=== PATIENT | male | born 1960 | race Caucasian/White ===

== ENCOUNTER 2016-12-05 11:08 | Emergency (ER) | payer OTHER ==
[2016-12-05] MEDS ORDERED: Sodium Chloride 0.9% 10 ML Syringe FLUSH PRN (11:40)
[2016-12-05] MEDS ORDERED: Ondansetron 4 MG/2 ML SDV IVPUSH ONE (11:41)
[2016-12-05] MEDS ORDERED: Ketorolac 30 MG/ML SDV IVPUSH ONE (11:41)
[2016-12-05] MEDS ORDERED: HYDROmorphone 1 MG/ML Syringe IVPUSH ONE (11:41)
[2016-12-05] MEDS: Sodium Chloride 0.9% 1,000 ML IV ONE ×2 (12:05→13:34)
[2016-12-05 12:15] LABS: CHLORIDE,CL 101 mmol/L (98-107); SODIUM,NA 139 mmol/L (136-145)
[2016-12-05 15:23] VITALS: BP 168/82
--- NOTE | 2016-12-06 11:28 | ER ---
Date of Service: 12/05/2016 SUBJECTIVE: You presents to emergency room with complaints of low back pain with radiation into his right lateral abdomen and into his right anterior upper leg and pelvis. The patient states that the discomfort does radiate into his groin area. He is not experiencing hematuria. He has never experienced discomfort like this in the past. PAST MEDICAL HISTORY: 1. Hypertension. 2. Dyslipidemia. MEDICATIONS: 1. Zocor 80 mg at bedtime. 2. Toprol-XL 100 mg p.o. daily. 3. Lisinopril 10 mg daily. 4. Hydrochlorothiazide 25 mg daily. 5. Aspirin 81 mg daily. ALLERGIES: NKDA. REVIEW OF SYSTEMS: General: No fever or chills. HEENT: No sore throat, rhinorrhea, congestion. Respiratory: No shortness breath. Cardiac: Denies any substernal chest pain. No jaw, arm, neck, or upper back pain. GI: Again complains of right lower abdominal pain that appears to be arising from his low back pain. He denies any melena, hematochezia, or hematemesis. : Denies any dysuria. Musculoskeletal: Please see history of present illness. Neurologic: No fainting, blackouts, lightheadedness. No saddle anesthesia. No fecal or urinary incontinence. PHYSICAL EXAMINATION: General: This is a 56-year-old male patient, who is in no acute distress. Vital Signs: Blood pressure is 168/82, pulse rate is 72, temperature is 35.4, respiratory rate 16, O2 saturations 99%. Skin: Warm, pink, and dry. HEENT: Head is normocephalic, atraumatic. Eyes, PERRLA. Extraocular movements are intact. Ears, TMs are clear. Mouth, oral mucosa is moist. No erythema or exudate. No hypopharynx. Neck: Supple. No masses. There is no lymphadenopathy. Lungs: Clear to auscultation. Heart: Regular rate and rhythm. Abdomen: Soft, nontender. There is no hepatosplenomegaly noted. There are no masses noted. Extremities: Without edema. Musculoskeletal: He does have point tenderness and increased discomfort with flexion and extension of his lumbar spine. Also has increased discomfort with lateral bending to the left and to the right. LABORATORY DATA: Urinalysis was obtained and was clear of blood. Specific gravity was 1.025, negative for nitrites, leukocytes, ketones, and glucose. Comprehensive metabolic panel was obtained and was all noted to be within normal limits. CBC was obtained, was all noted to be within normal limits. C-reactive protein is less than 0.2. EMERGENCY ROOM COURSE: IV access established. He was given a total of 1.5 L of normal saline. He was given Toradol 30 mg IV and Dilaudid 1 mg IV. He was also given Zofran 4 mg IV and did report complete resolution in his symptoms. He remained stable in my care in the emergency room. ASSESSMENT: Lumbar back pain with right-sided radiculopathy. PLAN: The patient will be discharged. Started him on Flexeril 10 mg p.o. 3 times daily. Also, did start him on Zofran ODT 4 mg every 8 hours as needed for nausea. I would like him to follow up in the clinic in the next 7-10 days. All questions were answered. MWK: 12/05/2016 16:10:18 MODL: 12/05/2016 22:49:52 /[id number]
== END 2016-12-05 14:50 | disposition home or self-care (01) ==
LOC: VM.ED 11:08
DX: M54.16 Radiculopathy, lumbar region (principal); I10 Essential (primary) hypertension; E78.5 Hyperlipidemia, unspecified; Z79.82 Long term (current) use of aspirin; Z79.899 Other long term (current) drug therapy
CPT/HCPCS: 36415; 80053; 81001; 85025; 86140; 96361; 96374; 96375; 99283; J1170; J1885; J2405; J7030

== ENCOUNTER 2020-09-21 21:26 | Emergency (ER) | payer MEDICAID, OTHER ==
--- NOTE | 2020-09-21 22:29 | EDM.PDOC ---
ED HPI GENERAL MEDICAL PROBLEM - General Stated Complaint: PSYCHOLOGICAL Time Seen by Provider: 09/21/20 21:45 Source of Information: Reports: Patient - History of Present Illness INITIAL COMMENTS - FREE TEXT/NARRATIVE: You is a 59 y/o male who is brought to the ER by police. He was being arrested for DUI and threatened suicide to the officer. He stated, "I might as well kill myself." On arrival to the ER the patient initially was not cooperative and not wanting to answer questions. Upon questioning the patient denied that he did not have a plan to hurt himself. - Related Data Allergies Allergy/AdvReac Type Severity Reaction Status Date / Time No Known Allergies Allergy Verified 12/05/16 14:11 Home Meds: Home Meds Aspirin [Halfprin] 81 mg PO DAILY 12/02/13 [History] Metoprolol Succinate [Toprol XL 100mg] 100 mg PO DAILY 12/02/13 [History] Simvastatin [Zocor] 80 mg PO BEDTIME 12/02/13 [History] hydroCHLOROthiazide [Hydrochlorothiazide] 25 mg PO DAILY 12/02/13 [History] Lisinopril [Prinivil] 10 mg PO DAILY 12/05/16 [History] Past Medical History Cardiovascular History: Reports: High Cholesterol, Hypertension Review of Systems - Review of Systems Review Of Systems: See Below Constitutional: Reports: No Symptoms Eyes: Reports: No Symptoms Ears: Reports: No Symptoms Nose: Reports: No Symptoms Mouth/Throat: Reports: No Symptoms Respiratory: Reports: No Symptoms Cardiovascular: Reports: No Symptoms GI/Abdominal: Reports: No Symptoms Genitourinary: Reports: No Symptoms Musculoskeletal: Reports: No Symptoms Skin: Reports: No Symptoms Neurological: Reports: No Symptoms Psychiatric: Reports: No Symptoms ED EXAM, GENERAL - Physical Exam Exam: See Below General Appearance: Alert, WD/WN, No Apparent Distress (Adult male.) Eye Exam: Bilateral Eye: PERRL Ears: Hearing Grossly Normal Nose: Normal Inspection Throat/Mouth: Normal Inspection, Normal Lips, Normal Voice Head: Atraumatic, Normocephalic Neck: Supple Respiratory/Chest: No Respiratory Distress, Lungs Clear, Chest Non-Tender Cardiovascular: Normal Peripheral Pulses, Regular Rate, Rhythm GI/Abdominal: Normal Bowel Sounds, Soft, Non-Tender (Male) Exam: Deferred Rectal (Males) Exam: Deferred Back Exam: Normal Inspection Extremities: Normal Inspection, Normal Range of Motion, No Pedal Edema, Normal Capillary Refill Neurological: Alert, Oriented, CN II-XII Intact, No Motor/Sensory Deficits Psychiatric: Depressed Mood Skin Exam: Warm, Dry, Intact Lymphatic: No Adenopathy Course - Vital Signs Text/Narrative:: 2145 The patient was seen by the [facility]. Labs were done. 2315 Labs reviewed. Note [id number]. Will have patient talk to Olga Davalos for eval. 0010 Eval done by [facility]. No inpatient behavioral health recommended. Identified protective factors to staff, supportive and will keep him safe. Will have patinet follow up as an outpatient. He was given written instructions and left the ER in stable condition. - Orders/Labs/Meds Labs: Laboratory Tests 09/21/20 09/21/20 09/21/20 Range/Units 22:00 22:00 22:20 WBC 7.5 (4.0-10.0) x10^3/uL RBC 4.91 (4.5-6.0) x10^6/uL Hgb 14.9 (14.0-18.0) g/dL Hct 43.7 (40.0-52.0) % MCV 89.0 (78.0-93.0) fL MCH 30.3 (26.0-32.0) pg MCHC 34.1 (32.0-36.0) g/dL RDW Coeff of Margaret 13.2 (10.0-15.0) % Plt Count 214 (130-400) x10^3/uL Add Manual Diff Yes Neutrophils % (Manual) 40 L (50-80) % Band Neutrophils % 1 (0-6) % Lymphocytes % (Manual) 33 (25-50) % Reactive Lymphs % 11 H (0) % Monocytes % (Manual) 12 H (2-11) % Eosinophils % (Manual) 2 (0-4) % Basophils % (Manual) 1 (0-1) % Platelet Estimate Adequate Sodium (136-145) mmol/L Potassium (3.5-5.1) mmol/L Chloride (98-107) mmol/L Carbon Dioxide (21-32) mmol/L Anion Gap (5-15) mmol/L BUN (7-18) mg/dL Creatinine (0.70-1.30) mg/dL Est Cr Clr Drug Dosing Estimated GFR (MDRD) Glucose (74-106) mg/dL Calcium (8.5-10.1) mg/dL Corrected Calcium (8.5-10.1) mg/dL Magnesium (1.8-2.4) mg/dL Total Bilirubin (0.2-1.0) mg/dL AST (15-37) U/L ALT (16-63) U/L Alkaline Phosphatase (46-116) U/L Total Protein (6.4-8.2) g/dL Albumin (3.4-5.0) g/dL Globulin g/dL Albumin/Globulin Ratio TSH, Ultra Sensitive (0.358-3.74) uIU/mL Urine Color Light yellow (YELLOW) Urine Appearance Clear (CLEAR) Urine pH 5.5 (5.0-8.0) Ur Specific [place] <=1.005 Urine Protein Negative (NEGATIVE) mg/dL Urine Glucose (UA) 100 H (NEGATIVE) mg/dL Urine Ketones Negative (NEGATIVE) mg/dL Urine Occult Blood Negative (NEGATIVE) Urine Nitrite Negative (NEGATIVE) Urine Bilirubin Negative (NEGATIVE) Urine Urobilinogen 0.2 (0.2) EU/dL Ur Leukocyte Esterase Negative (NEGATIVE) Urine Opiates Screen Negative (NEGATIVE) Ur Buprenorphine Scrn Negative (NEGATIVE) Ur Oxycodone Screen Negative (NEGATIVE) Ur EDDP (Meth Metab) Negative (NEGATIVE) Urine Methadone Screen Negative (NEGATIVE) Acetaminophen (10-30) ug/ml Ur Barbituates Screen Negative (NEGATIVE) Ur Tricyclics Screen Negative (NEGATIVE) Ur Phencyclidine Scrn Negative (NEGATIVE) Ur Amphetamines Screen Negative (NEGATIVE) U Methamphetamines Scrn Negative (NEGATIVE) Urine MDMA Screen Negative (NEGATIVE) U Benzodiazepines Scrn Negative (NEGATIVE) Urine Cocaine Screen Negative (NEGATIVE) U Marijuana (THC) Screen Negative (NEGATIVE) Ethyl Alcohol (0-3) mg/dL 09/21/20 Range/Units 22:20 WBC (4.0-10.0) x10^3/uL RBC (4.5-6.0) x10^6/uL Hgb (14.0-18.0) g/dL Hct (40.0-52.0) % MCV (78.0-93.0) fL MCH (26.0-32.0) pg MCHC (32.0-36.0) g/dL RDW Coeff of Margaret (10.0-15.0) % Plt Count (130-400) x10^3/uL Add Manual Diff Neutrophils % (Manual) (50-80) % Band Neutrophils % (0-6) % Lymphocytes % (Manual) (25-50) % Reactive Lymphs % (0) % Monocytes % (Manual) (2-11) % Eosinophils % (Manual) (0-4) % Basophils % (Manual) (0-1) % Platelet Estimate Sodium 141 (136-145) mmol/L Potassium 3.6 (3.5-5.1) mmol/L Chloride 105 (98-107) mmol/L Carbon Dioxide 26 (21-32) mmol/L Anion Gap 13.6 (5-15) mmol/L BUN 19 H (7-18) mg/dL Creatinine 1.1 (0.70-1.30) mg/dL Est Cr Clr Drug Dosing TNP Estimated GFR (MDRD) > 60 Glucose 194 H (74-106) mg/dL Calcium 8.7 (8.5-10.1) mg/dL Corrected Calcium 9.10 (8.5-10.1) mg/dL Magnesium 1.5 L (1.8-2.4) mg/dL Total Bilirubin 0.3 (0.2-1.0) mg/dL AST 30 (15-37) U/L ALT 52 (16-63) U/L Alkaline Phosphatase 97 (46-116) U/L Total Protein 7.2 (6.4-8.2) g/dL Albumin 3.5 (3.4-5.0) g/dL Globulin 3.7 g/dL Albumin/Globulin Ratio 0.95 TSH, Ultra Sensitive 0.769 (0.358-3.74) uIU/mL Urine Color (YELLOW) Urine Appearance (CLEAR) Urine pH (5.0-8.0) Ur Specific [place] Urine Protein (NEGATIVE) mg/dL Urine Glucose (UA) (NEGATIVE) mg/dL Urine Ketones (NEGATIVE) mg/dL Urine Occult Blood (NEGATIVE) Urine Nitrite (NEGATIVE) Urine Bilirubin (NEGATIVE) Urine Urobilinogen (0.2) EU/dL Ur Leukocyte Esterase (NEGATIVE) Urine Opiates Screen (NEGATIVE) Ur Buprenorphine Scrn (NEGATIVE) Ur Oxycodone Screen (NEGATIVE) Ur EDDP (Meth Metab) (NEGATIVE) Urine Methadone Screen (NEGATIVE) Acetaminophen 0 L (10-30) ug/ml Ur Barbituates Screen (NEGATIVE) Ur Tricyclics Screen (NEGATIVE) Ur Phencyclidine Scrn (NEGATIVE) Ur Amphetamines Screen (NEGATIVE) U Methamphetamines Scrn (NEGATIVE) Urine MDMA Screen (NEGATIVE) U Benzodiazepines Scrn (NEGATIVE) Urine Cocaine Screen (NEGATIVE) U Marijuana (THC) Screen (NEGATIVE) Ethyl Alcohol 195 H (0-3) mg/dL Departure - Departure Time of Disposition: 00:11 Disposition: Home, Self-Care 01 Clinical Impression: Verbalizes suicidal thoughts Alcohol intoxication Qualifiers: Complication of substance-induced condition: uncomplicated Qualified Code(s): F10.920 - Alcohol use, unspecified with intoxication, uncomplicated - Discharge Information Instructions: Alcohol Intoxication, Suicidal Feelings: How to Help Yourself Referrals: Sharan Madrid PA-C [Primary Care Provider] - Additional Instructions: -Follow up with your PCP as needed -Return to the ER for any concerns
[2020-09-21 22:55] LABS: BUPRENORPHINE,URINE NEGATIVE (NEGATIVE); MARIJUANA,URINE NEGATIVE (NEGATIVE); METHYLENEDIOXYMETHAMP,UR NEGATIVE (NEGATIVE); PHENCYCLIDINE,URINE NEGATIVE (NEGATIVE)
[2020-09-21 23:06] LABS: ANION GAP 13.6 mmol/L (5-15); CHLORIDE,CL 105 mmol/L (98-107); SODIUM,NA 141 mmol/L (136-145)
[2020-09-21 23:08] LABS: ACETAMINOPHEN 0 ug/ml (10-30)
[2020-09-21 23:42] VITALS: BP 163/84; PULSE 97
== END 2020-09-22 00:15 | disposition home or self-care (01) ==
LOC: VM.ED 21:26
DX: R45.851 Suicidal ideations (principal); F10.120 Alcohol abuse with intoxication, uncomplicated; I10 Essential (primary) hypertension; E78.00 Pure hypercholesterolemia, unspecified; Y90.6 Blood alcohol level of 120-199 mg/100 ml; Z79.82 Long term (current) use of aspirin; Z79.899 Other long term (current) drug therapy
CPT/HCPCS: 36415; 80053; 80143; 80305-QW; 80307; 81003; 83735; 84443; 85025; 99283; 99285

== ENCOUNTER 2021-09-01 16:41 | Emergency (ER) | payer SELFPAY ==
--- NOTE | 2021-09-01 16:51 | EDM.PDOC ---
ED HPI GENERAL MEDICAL PROBLEM - General Chief Complaint: Laceration Stated Complaint: HEAD INJURY Time Seen by Provider: 09/01/21 16:41 Source of Information: Reports: Patient History Limitations: Reports: No Limitations - History of Present Illness INITIAL COMMENTS - FREE TEXT/NARRATIVE: To the emergency department with complaint of a laceration to the top of the head. Patient states that he was snowblowing and hit a bump causing him to lift up off his chair hitting his head on the roof of his tractor causing a laceration. He states he did not lose consciousness. He states he remembers all events leading up to it and after. Patient states that he was able to control the bleeding with manual pressure prior to arrival to the emergency department. Patient states that he has no range of motion or CMS concerns. He also denies any blurriness, dizziness, lightheadedness, chest pain, change in vision, or changes in balance. Onset: Sudden Quality: Reports: Throbbing Severity: Moderate Improves with: Reports: None Worsens with: Reports: None Context: Reports: Trauma Associated Symptoms: Reports: No Other Symptoms - Related Data Allergies Allergy/AdvReac Type Severity Reaction Status Date / Time No Known Allergies Allergy Verified 12/05/16 14:11 Home Meds: Home Meds Aspirin [Halfprin] 81 mg PO DAILY 12/02/13 [History] Metoprolol Succinate [Toprol XL 100mg] 100 mg PO DAILY 12/02/13 [History] Simvastatin [Zocor] 80 mg PO BEDTIME 12/02/13 [History] hydroCHLOROthiazide [Hydrochlorothiazide] 25 mg PO DAILY 12/02/13 [History] Lisinopril [Prinivil] 10 mg PO DAILY 12/05/16 [History] Past Medical History Cardiovascular History: Reports: High Cholesterol, Hypertension ED ROS GENERAL - Review of Systems Review Of Systems: Comprehensive ROS is negative, except as noted in HPI. Constitutional: Reports: No Symptoms HEENT: Reports: No Symptoms Respiratory: Reports: No Symptoms Cardiovascular: Reports: No Symptoms Endocrine: Reports: No Symptoms GI/Abdominal: Reports: No Symptoms : Reports: No Symptoms Musculoskeletal: Reports: No Symptoms Skin: Reports: No Symptoms Neurological: Reports: No Symptoms Psychiatric: Reports: No Symptoms Hematologic/Lymphatic: Reports: No Symptoms Immunologic: Reports: No Symptoms ED EXAM, GENERAL - Physical Exam Exam: See Below Exam Limited By: No Limitations General Appearance: Alert, WD/WN, No Apparent Distress Eye Exam: Bilateral Eye: PERRL Head: Normocephalic, Other (laceration noted Left parietal ) Neck: Normal Inspection, Supple, Non-Tender, Full Range of Motion Extremities: Normal Inspection, Normal Range of Motion, Non-Tender, Normal Capillary Refill Neurological: Alert, Oriented, CN II-XII Intact, Normal Cognition, Normal Gait Psychiatric: Normal Affect, Normal Mood Skin Exam: Warm, Dry, Intact, Normal Color ED GENERAL MEDICAL PROCEDURES - Laceration/Wound Repair Left Medial Proximal Occipital Head Lac/wound length in cm: 2.5 Appearance: Linear Distal NVT: Neuro & Vascular Intact, No Tendon Injury Exploration/Debridement/Repair: Wound Explored, No Foreign Material Found Closed with: Magda # of Sutures: 3 Sterile Dressing Applied: Provider Tetanus Status Addressed: No Departure - Departure Time of Disposition: 16:55 Disposition: Home, Self-Care 01 Condition: Good Clinical Impression: Laceration - Discharge Information *PRESCRIPTION DRUG MONITORING PROGRAM REVIEWED*: Not Applicable *COPY OF PRESCRIPTION DRUG MONITORING REPORT IN PATIENT LAURYN: Not Applicable Instructions: Laceration Care, Adult, Sutures, Magda, or Adhesive Wound Closure, [id number] Forms: ED Department Discharge Additional Instructions: 1. Rest 2. Keep the area clean and dry 3. Can use tylenol and ibuprofen as needed for pain and discomfort 4. Diet as tolerated 5. Activity as tolerated 6. Elevated the injured area above the level of the heart to decrease swelling and discomfort if applicable 7. Can use ice 3-4 times a day at 20-minute intervals to help with any swelling and discomfort 8. Follow-up with your primary care provider symptoms continue or to progress 9. Discharge information has been provided regarding your injury and wound care has been provided 10. Avoid an public pools or hot tubes until wound is healed. 11. Follow up in the Clinic in 10 days for removal of magda - Assessment/Plan Assessment:: 1. laceration Plan: 1. Wound cleansing completed 2. Laceration repair completed 3. Tdap vaccine history completed 4. Education regarding wound care, dressing changes, OTC medications, activity, diet, follow up care and when to seek care if warranted provided 5. Patient is to return to the clinic in 10 days to have sutures site evaluated and removed 6. Patient was encouraged to call or return if any questions or concerns arise.
[2021-09-01 18:57] VITALS: BP 157/79; PULSE 60
== END 2021-09-01 17:00 | disposition home or self-care (01) ==
LOC: VM.ED 16:41
DX: S01.01XA Laceration without foreign body of scalp, initial encounter (principal); E78.00 Pure hypercholesterolemia, unspecified; I10 Essential (primary) hypertension; Z79.82 Long term (current) use of aspirin; Z79.899 Other long term (current) drug therapy; W22.09XA Striking against other stationary object, initial encounter
CPT/HCPCS: 12001; 99282-25; 99284

== ENCOUNTER 2025-03-12 07:33 | Day surgery (SDC) | payer MEDICAID, MEDICARE ==
[2025-03-12] MEDS: Lactated Ringers 1,000 ML IV SCH (07:47)
[2025-03-12] MEDS ORDERED: Propofol 200 MG/20 ML SDV ONE ×2 (08:16→10:01)
[2025-03-12] MEDS ORDERED: fentaNYL 100 MCG/2 ML SDV ONE (08:16)
[2025-03-12 10:24] VITALS: BP 160/77; PULSE 94
== END 2025-03-12 10:53 | disposition home or self-care (01) ==
LOC: VM.SDS 07:33
PROVIDERS: ATTEND Family Medicine
DX: Z12.11 Encounter for screening for malignant neoplasm of colon (principal); D12.0 Benign neoplasm of cecum; D12.2 Benign neoplasm of ascending colon; K57.30 Diverticulosis of large intestine without perforation or abscess without bleeding; I10 Essential (primary) hypertension; E66.9 Obesity, unspecified; E11.9 Type 2 diabetes mellitus without complications; Z79.899 Other long term (current) drug therapy; Z79.84 Long term (current) use of oral hypoglycemic drugs; Z79.82 Long term (current) use of aspirin; Z86.0102 Personal history of hyperplastic colon polyps
CPT/HCPCS: 00811; 82947; 88305; J2704; J3010; J7120